=== PATIENT | male | born 1945 | race Caucasian/White ===

== ENCOUNTER 2022-01-12 08:43 | Outpatient (RCR) | payer MEDICARE, OTHER, SELFPAY ==
[2022-01-12 09:21] LABS: Basophils Absolute Auto 0.03 K/uL (0.00-0.30); Basophils Percent Auto 0.4 % (0.0-3.0); Eosinophils Absolute Auto 0.34 K/uL (0.00-0.50); Eosinophils Percent Auto 4.6 % (0.0-7.0); Hematocrit 45.6 % (37.0-53.0); Hemoglobin* 15.3 gm/dL (13.5-17.5); Immature Granulocytes Abs Auto 0.02 K/uL (0.00-0.30); Lymphocytes Absolute Auto 2.07 K/uL (0.90-2.90); Lymphocytes Percent Auto 27.9 % (20-44); Mean Corpuscular HGB Conc 34 gm/dL (32-36); Mean Corpuscular Hemoglobin 32 pg (26-34); Mean Corpuscular Volume 95 fL (80-100); Monocytes Percent Auto 11.4 % (0.0-11.0); Neutrophils Absolute Auto 4.12 K/uL (1.7-7.0); Neutrophils Percent Auto 55.4 % (42.0-72.0); Platelet Count* 170 K/uL (140-440); RDW Coefficient of Variation % 12.6 % (11.5-15.5); Red Blood Count 4.78 m/uL (4.30-5.90); White Blood Count* 7.43 K/uL (4.50-11.00)
[2022-01-12 09:24] LABS: Slide Review Reflex No
[2022-01-12 09:39] LABS: Albumin* 4.3 g/dL (3.3-5.0); Chloride* 104 mmol/L (96-114); Sodium* 139 mmol/L (135-149)
[2022-01-12 09:40] LABS: Potassium* 3.7 mmol/L (3.6-5.1)
[2022-01-12 09:42] LABS: Alanine Aminotransferase* 24 U/L (4-50); Alkaline Phosphatase* 94 U/L (40-150); Aspartate Amino Transferase* 30 U/L (12-35); Bilirubin Total* 0.6 mg/dL (0.1-1.5); Blood Urea Nitrogen* 18 mg/dL (7-30); Carbon Dioxide* 27 mmol/L (20-32); Estimated Glomerular Filt Rate 77 ml/min; Glucose* 125 mg/dL (60-115); Lactate Dehydrogenase* 426 U/L (313-618); Total Protein* 7.2 g/dL (6.0-8.3)
== END 2022-07-11 23:59 | disposition home or self-care (01) ==
LOC: CCIC 08:43
PROVIDERS: PCP Family Medicine; Visit Provider Internal Medicine Hematology & Oncology
DX: C85.90 Non-Hodgkin lymphoma, unspecified, unspecified site (principal)
CPT/HCPCS: 36415; 80053; 83615; 85025; 99212; 99213; 99214

== ENCOUNTER 2023-02-01 11:30 | Outpatient (RCR) | payer MEDICARE, SELFPAY ==
--- NOTE | 2023-01-04 09:22 | PT.OPEX ---
PT [place] [facility] PT [facility] Eval Start: 01/04/23 07:40 Freq: Status: Active Protocol: Document 01/04/23 07:41 [email or web address] (Rec: 01/04/23 09:22 [id number]) E-signed By Jyothi Thompson, PT Physical Therapy Outpatient Evaluation Insurance Information Recert Due Date 03/31/23 Insurance Name Medicare B,Other; See Comments Insurance Information/Comments [employer] Medical Diagnosis Bursitis of both hips Treating Diagnosis Left hip pain, right hip pain, hip abductor weakness, antalgic gait Referring MD Meléndez Subjective Subjective Roblero reports to PT with primary complaint of B lateral hip pain with initial gradual and insidious onset about 1 month ago. He has a history of B DONOVAN 2003 and 2005 done at [place]. Worse with walking and sleeping on his side. More pain left hip than right. Denies radicular symptoms or changes in bowel/bladder. Has tried ice with about 10 min pain relief. At baseline has balance deficits which affects his gait pattern (very wide CHELSIE). He has been told he has vestibular issues but has not been diagnosed with any particular disease. Does not use AD. Goals are to reduce B hip pain in order to continue walking and playing golf without flare up of pain. 12/28/22 x-ray: These show his ingrowth total hip arthroplasty implants remain well placed and well-fixed. PMH: follicular lymphoma, B DONOVAN Pain Comments 08/31 L 1-06/03 R Date of Last Physician Visit 12/28/22 Current Work Status Retired Objective Other/Pertinent Objective Hip ROM WNL B, no pain with PROM testing LE Strength (R/L): -Hip Abd: R: 4/5, L: 3+/5 -Hip Add: R: 4+/5, L: 4+/5 -Hip Ext: R: 4/5, L: 4/5 -Hip Flx: R: 5/5, L: 5/5 Gait: wide CHELSIE with L hip circumducted, reverse trendelenburg L>R, mid foot strike L SL balance: unable to perform d/t vestibular issues TTP L>R distal glut med insertion Functional Test Performed & Score LEFS: 46/80 Assessment Assessment/Impression Patient is a 77 year old male presenting to physical therapy for evaluation and treatment of B hip pain. Patient presents with L>R hip abductor weakness and antalgic gait. These impairments are limiting the patients ability to continue walking program and golfing without pain. Patient appears motivated to participate in PT and presents with good prognosis to improve mobility, strength, proprioception and return to functional activities with skilled physical therapy intervention. Primary Functional Limitations continue walking program and golfing without pain Plan of Care Rehabilitation Potential Good Physical Therapy Goals In 4 weeks (02/01/23) Pt will be able to walk >1/2 mile with <2/10 hip pain in order to perform community ambulation Pt will be able to stand >30 min with <2/10 hip pain in order to perform ADLs In 8 weeks (03/01/23) Pt will exhibit 9 pt improvement in LEFS Outcome measure to demonstrate functional improvement and progress towards goals. Pt will be able to walk >1 mile with <2/10 hip pain in order to play golf Pt will demonstrate at least 4 +/5 strength MMT in glut max & glut med to improve dynamic control with SLS activities and gait. Treatment Plan/Direct Interventions Gait Training,Ice/Cold/ Vasopneumatic,Joint Mobilization,Manual Therapy, Neuromuscular Re-ed,Self-Care/ Home Management,Therapeutic Activities,Therapeutic Exercises Frequency/Duration 1x/wk for 4 weeks with additional 4 sessions prn based on progress Patient Will Be Discharged From Therapy Completion of LTG(s), Independent w/HEP, Independently Progressing Evaluation Billing Untimed Code Treatment Minutes 20 Complexity Low Certification Information Initial Certification Date 01/04/23 Ending Certification Date 03/31/23 Provider Signature Shows Agreement With POC & Medical Necessity Physician Signature & Date Requested Please Sign/Date Here Physician Comment/Change : Physician NPI Number #
== END 2023-04-05 14:11 | disposition home or self-care (01) ==
LOC: CCIC 11:30
PROVIDERS: PCP Family Medicine; Referring Provider Internal Medicine Hematology & Oncology; Visit Provider Orthopaedic Surgery
DX: C82.90 Follicular lymphoma, unspecified, unspecified site (principal); M70.71 Other bursitis of hip, right hip; M70.72 Other bursitis of hip, left hip
CPT/HCPCS: 97110; 97140; 97161; 99212; 99213; 99214

== ENCOUNTER 2023-12-21 11:17 | Emergency (ER) | payer MEDICARE, SELFPAY ==
[2023-12-21 11:38] VITALS: BP 115/76; PULSE 62; RESP 16; TEMP 36.5; O2SAT 96; BMI 26.4
--- NOTE | 2023-12-21 13:23 | ED.GENADULT ---
HPI - General Adult General Date Seen: 12/21/23 Chief complaint: Cough Stated complaint: Cough, heavy chest, shortness of breath, Time Seen by Provider: 12/21/23 11:20 Source: patient Mode of arrival: ambulatory Limitations: no limitations History of Present Illness HPI narrative: Patient is a 78 year old male presenting to emergency department for chest discomfort and respiratory symptoms. He is into for the past 2 and half weeks he has been having a dry cough, rhinorrhea. . States he has been having intermittent chest discomfort for the past 2 and half weeks that seems to be random in nature with no obvious preceding events. States cough seems to be worse at night. He thinks is because he is having more postnasal drip. Denies fever, nausea, vomiting, chest congestion, shortness of breath, weakness, numbness, lightheadedness. Does have dizziness but this is a chronic issue for him he has not noticed any difference. Had a COVID test done yesterday that was negative. Was told to come in for evaluation by is clinic due to his chest discomfort. States he is currently asymptomatic. Denies any history of heart or lung disease. Quit smoking over 30 years ago. Related Data Home Medications ?Medication ?Instructions ?Recorded ?Confirmed alprazolam 0.25 mg tablet 0.25 mg PO DAILY PRN anxiety 11/30/21 02/01/23 cholecalciferol (vitamin D3) 125 125 mcg PO QDAY 01/12/22 02/01/23 mcg (5,000 unit) capsule tadalafil 10 mg tablet 10 mg PO PRN 01/12/22 02/01/23 zinc gluconate 50 mg tablet 25 mg PO QDAY 01/12/22 02/01/23 Allergies Allergy/AdvReac Type Severity Reaction Status Date / Time No Known Drug Allergies Allergy Verified 12/21/23 11:38 Review of Systems Status of ROS: Reports: 10 or more systems reviewed and unremarkable except as noted in History and below [facility] Medical History (Updated 12/21/23 @ 16:23 by Laurent Canseco DO) Greater trochanteric bursitis of both hips ?M70.61 - Trochanteric bursitis, right hip (ICD-10) ?M70.62 - Trochanteric bursitis, left hip (ICD-10) Transaminitis ?R74.01 - Elevation of levels of liver transaminase levels (ICD-10) Follicular lymphoma (~2010) ?C82.90 - Follicular lymphoma, unspecified, unspecified site (ICD-10) Surgical History (Updated 12/28/22 @ 13:45 by Elsa Diaz ~ [facility]) H/O hernia repair (~2014) ?Z98.890 - Other specified postprocedural states (ICD-10) ?Z87.19 - Personal history of other diseases of the digestive system (ICD-10) Status post total replacement of left hip (~2003) ?Z96.642 - Presence of left artificial hip joint (ICD-10) Status post total replacement of right hip (~2005) ?Z96.641 - Presence of right artificial hip joint (ICD-10) Social History (Updated 12/28/22 @ 13:45 by Elsa Diaz ~ [facility], [facility]) Narrative: former smoker-quit 1991 Smoking Status: Former smoker What tobacco products do you use: cigarettes Smoking quit date/years: >15 years ago Do you use any of these nicotine containing products: None Second hand tobacco smoke exposure: No Exam Narrative: Exam Narrative: Const: Well-nourished, Well-developed, in no distress Eyes: PERRL, no conjunctival injection, and symmetrical lids HENT: Atraumatic external nose and ears. Moist mucous membranes. Neck: Symmetric, trachea midline, No thyromegaly. CVS: RRR, No murmurs or gallops. Peripheral pulses 2+ and equal in all extremities RESP: Unlabored respiratory effort. Clear to auscultation bilaterally. GI: Nontender/Nondistended, No rebound or guarding. MSK:Extremities w/o deformity, Normal Active ROM Skin: Warm, Dry. No rashes or lesions. Neuro: Normal Muscle tone, No focal neurological deficits. Psych: Awake, Alert, & Oriented x3. Appropriate mood and affect. Const: Vital Signs, click to edit/add: Vital Signs - 24 hr 12/21/23 11:38 Temperature 97.7 F Pulse Rate [Pulse Oximeter] 62 Respiratory Rate 16 Blood Pressure [Ri ght Upper Arm] 115/76 Pulse Oximetry 96 Oxygen Delivery Me thod Room Air Course Vital Signs Vital signs: Initial Vital Signs Temperature 97.7 F 12/21/23 11:38 Temperature Source Temporal Artery Scan 12/21/23 11:38 Pulse Rate 62 12/21/23 11:38 Respiratory Rate 16 12/21/23 11:38 Blood Pressure 115/76 12/21/23 11:38 Blood Pressure Mean 89 12/21/23 11:38 Blood Pressure Position Sitting 12/21/23 11:38 Pulse Oximetry 96 12/21/23 11:38 Oxygen Delivery Method Room Air 12/21/23 11:38 Vital Signs Temperature 97.7 F 12/21/23 11:38 Pulse Rate 62 12/21/23 11:38 Respiratory Rate 16 12/21/23 11:38 Blood Pressure 115/76 12/21/23 11:38 Pulse Oximetry 96 12/21/23 11:38 Oxygen Delivery Method Room Air 12/21/23 11:38 Temperature 97.7 F 12/21/23 11:38 Pulse Rate 62 12/21/23 11:38 Respiratory Rate 16 12/21/23 11:38 Blood Pressure 115/76 12/21/23 11:38 Pulse Oximetry 96 12/21/23 11:38 Oxygen Delivery Method Room Air 12/21/23 11:38 Medical Decision Making [facility] Narrative Medical decision making narrative: Patient is 78-year-old male presenting to the emergency department floor to her respiratory symptoms and chest pain. The differential diagnosis of chest pain is broad and includes common etiologies such as musculoskeletal strain, GERD, pneumonia, etc. More serious etiologies considered include PE, coronary artery disease, pneumothorax, aortic dissection, aortic aneurysm. The this time symptoms seem more likely related to your eye but I will order a D-dimer to look for signs of PE. BMP, troponin, urinalysis, EKG all ordered. CBC, CMP shows no concerning abnormalities. Troponin shows no concerning abnormalities. COVID/flu were negative. EKG shows no concerning finding. ACS seems unlikely at this time. Did a repeat troponin does also within normal limits. Since his D-dimer was elevated at 3.3 a will order CTA of the chest. This returned showing no evidence for acute abnormalities. There were some incidental findings but nothing of suspicion. He is doing well this time and vital signs continues to stay stable. Symptoms are most likely related to a viral syndrome. He will be discharged at this time he is agreeable to this plan. Lab Data Labs: Lab Results 12/21/23 12/21/23 12/21/23 Range/Units 13:12 13:21 13:45 WBC (4.50-11.00) K/uL RBC (4.30-5.90) m/uL Hgb (13.5-17.5) gm/dL Hct (37.0-53.0) % MCV (80-100) fL MCH (26-34) pg MCHC (32-36) gm/dL RDW Coeff of Dylan (11.5-15.5) % Plt Count (140-440) K/uL Neut % (Auto) (42.0-72.0) % Lymph % (Auto) (20-44) % Isabela % (Auto) (0.0-11.0) % Eos % (Auto) (0.0-7.0) % Baso % (Auto) (0.0-3.0) % Neut # (Auto) (1.7-7.0) K/uL Lymph # (Auto) (0.90-2.90) K/uL Isabela # (Auto) (0.00-0.90) K/UL Eos # (Auto) (0.00-0.50) K/uL Baso # (Auto) (0.00-0.30) K/uL Abs Immat Gran (auto) (0.00-0.30) K/uL Imm/Tot Granulo (auto) % D-Dimer Quant (PE/DVT) 3.30 H (0.00-0.50) ug/ml Sodium 138 (135-149) mmol/L Potassium 4.6 (3.6-5.1) mmol/L Chloride 105 (96-114) mmol/L Carbon Dioxide 23 (20-32) mmol/L Anion Gap 10 (7-15) mEq/L BUN 12 (7-30) mg/dL Creatinine 1.0 (0.5-1.5) mg/dL Estimated Creat Clear 64.67 Estimated GFR 76 ml/min Glucose 103 (60-115) mg/dL Calcium 9.2 (8.4-10.6) mg/dL Troponin I < 0.01 L (0.01-0.04) ng/mL Urine Color Yellow (Yellow) Urine Appearance Clear (Clear) Urine pH 5.5 (5.0-8.5) Ur Specific Chandler 1.020 (1.000-1.030) Urine Protein Negative (Negative) Urine Glucose (UA) Negative (Negative) Urine Ketones Negative (Negative) Urine Blood Negative (Negative) Urine Nitrite Negative (Negative) Urine Bilirubin Negative (Negative) Urine Urobilinogen 0.2 (0.2-1.0) Ur Leukocyte Esterase Negative (Negative) Urine RBC 0-2 (0-2) Urine WBC 0-2 (0-5) Ur Squamous Epith Cells None (None-Few) Urine Bacteria None (None) SARS-CoV-2 (PCR) (Negative) Influenza Type A (PCR) (Negative) Influenza Type B (PCR) (Negative) Lab Acknowledgement POC Troponin I 0.00 L (0.01-0.04) ng/ml 12/21/23 12/21/23 12/21/23 Range/Units 14:17 14:45 14:48 WBC 8.00 (4.50-11.00) K/uL RBC 4.85 (4.30-5.90) m/uL Hgb 15.3 (13.5-17.5) gm/dL Hct 46.5 (37.0-53.0) % MCV 96 (80-100) fL MCH 32 (26-34) pg MCHC 33 (32-36) gm/dL RDW Coeff of Dylan 13.1 (11.5-15.5) % Plt Count 164 (140-440) K/uL Neut % (Auto) 59.1 (42.0-72.0) % Lymph % (Auto) 25.3 (20-44) % Isabela % (Auto) 10.5 (0.0-11.0) % Eos % (Auto) 4.5 (0.0-7.0) % Baso % (Auto) 0.5 (0.0-3.0) % Neut # (Auto) 4.73 (1.7-7.0) K/uL Lymph # (Auto) 2.02 (0.90-2.90) K/uL Isabela # (Auto) 0.80 (0.00-0.90) K/UL Eos # (Auto) 0.36 (0.00-0.50) K/uL Baso # (Auto) 0.04 (0.00-0.30) K/uL Abs Immat Gran (auto) 0.01 (0.00-0.30) K/uL Imm/Tot Granulo (auto) 0.1 % D-Dimer Quant (PE/DVT) (0.00-0.50) ug/ml Sodium (135-149) mmol/L Potassium (3.6-5.1) mmol/L Chloride (96-114) mmol/L Carbon Dioxide (20-32) mmol/L Anion Gap (7-15) mEq/L BUN (7-30) mg/dL Creatinine (0.5-1.5) mg/dL Estimated Creat Clear Estimated GFR ml/min Glucose (60-115) mg/dL Calcium (8.4-10.6) mg/dL Troponin I (0.01-0.04) ng/mL Urine Color (Yellow) Urine Appearance (Clear) Urine pH (5.0-8.5) Ur Specific Chandler (1.000-1.030) Urine Protein (Negative) Urine Glucose (UA) (Negative) Urine Ketones (Negative) Urine Blood (Negative) Urine Nitrite (Negative) Urine Bilirubin (Negative) Urine Urobilinogen (0.2-1.0) Ur Leukocyte Esterase (Negative) Urine RBC (0-2) Urine WBC (0-5) Ur Squamous Epith Cells (None-Few) Urine Bacteria (None) SARS-CoV-2 (PCR) Negative SARS-CoV-2 (Negative) Influenza Type A (PCR) Negative PCR FLU A (Negative) Influenza Type B (PCR) Negative PCR FLU B (Negative) Lab Acknowledgement Test Added POC Troponin I (0.01-0.04) ng/ml 12/21/23 Range/Units 15:43 WBC (4.50-11.00) K/uL RBC (4.30-5.90) m/uL Hgb (13.5-17.5) gm/dL Hct (37.0-53.0) % MCV (80-100) fL MCH (26-34) pg MCHC (32-36) gm/dL RDW Coeff of Dylan (11.5-15.5) % Plt Count (140-440) K/uL Neut % (Auto) (42.0-72.0) % Lymph % (Auto) (20-44) % Isabela % (Auto) (0.0-11.0) % Eos % (Auto) (0.0-7.0) % Baso % (Auto) (0.0-3.0) % Neut # (Auto) (1.7-7.0) K/uL Lymph # (Auto) (0.90-2.90) K/uL Isabela # (Auto) (0.00-0.90) K/UL Eos # (Auto) (0.00-0.50) K/uL Baso # (Auto) (0.00-0.30) K/uL Abs Immat Gran (auto) (0.00-0.30) K/uL Imm/Tot Granulo (auto) % D-Dimer Quant (PE/DVT) (0.00-0.50) ug/ml Sodium (135-149) mmol/L Potassium (3.6-5.1) mmol/L Chloride (96-114) mmol/L Carbon Dioxide (20-32) mmol/L Anion Gap (7-15) mEq/L BUN (7-30) mg/dL Creatinine (0.5-1.5) mg/dL Estimated Creat Clear Estimated GFR ml/min Glucose (60-115) mg/dL Calcium (8.4-10.6) mg/dL Troponin I (0.01-0.04) ng/mL Urine Color (Yellow) Urine Appearance (Clear) Urine pH (5.0-8.5) Ur Specific Chandler (1.000-1.030) Urine Protein (Negative) Urine Glucose (UA) (Negative) Urine Ketones (Negative) Urine Blood (Negative) Urine Nitrite (Negative) Urine Bilirubin (Negative) Urine Urobilinogen (0.2-1.0) Ur Leukocyte Esterase (Negative) Urine RBC (0-2) Urine WBC (0-5) Ur Squamous Epith Cells (None-Few) Urine Bacteria (None) SARS-CoV-2 (PCR) (Negative) Influenza Type A (PCR) (Negative) Influenza Type B (PCR) (Negative) Lab Acknowledgement POC Troponin I 0.00 L (0.01-0.04) ng/ml Imaging Data CTA chest: Attestation: I have reviewed the pertinent imaging results. Radiologist's impression: 1. No CT evidence of an acute process involving the thorax; specifically, no pulmonary embolism. 2. Additional incidental findings as detailed above. Please note that all CT scans at this facility use dose modulation, iterative reconstruction, and/or weight-based dosing when appropriate to reduce radiation dose to as low as reasonably achievable. Dictated by Tano Dubose MD @ 12/21/2023 3:31:46 PM ECG Data Attestation: I personally reviewed and interpreted this ECG as follows: Prior ECG tracings: not available for review Interpretation: Sinus bradycardia rate 56 beats per minute, no intervals, normal axis, no ST T-wave abnormality Discharge Plan Discharge Clinical Impression: Acute viral syndrome Patient Disposition: Home, Self-Care Condition: Stable Instructions: Viral Syndrome (ED) Additional Instructions: Follow-up the primary care provider symptoms continue to persist. Return to emergency department for new or worsening symptoms. Prescriptions: No Action tadalafil 10 mg tablet 10 mg PO PRN zinc gluconate 50 mg tablet 25 mg PO QDAY cholecalciferol (vitamin D3) 125 mcg (5,000 unit) capsule 125 mcg PO QDAY alprazolam 0.25 mg tablet 0.25 mg PO DAILY PRN (Reason: anxiety) Patient Comments: TAKE 1/2 - 1 TABLET BY MOUTH ONCE DAILY NEEDED. Follow Up/Referrals: Julian Chris MD [Primary Care Provider] - Stand Alone Forms: daysoft Info Instructions
[2023-12-21 13:50] LABS: Appearance Urine Clear (Clear); Bilirubin Urine Negative (Negative); Blood Urine Negative (Negative); Color Urine Yellow (Yellow); Glucose Urine Negative (Negative); Ketones Urine Negative (Negative); Leukocyte Esterase Urine Negative (Negative); Nitrite Urine Negative (Negative); Protein Urine Negative (Negative); Urobilinogen Urine 0.2 (0.2-1.0); pH Urine 5.5 (5.0-8.5)
[2023-12-21 13:53] LABS: Chloride* 105 mmol/L (96-114); Potassium* 4.6 mmol/L (3.6-5.1); Sodium* 138 mmol/L (135-149)
[2023-12-21 13:55] LABS: Est. Creatinine Clearance* 64.67; Estimated Glomerular Filt Rate 76 ml/min
[2023-12-21 13:56] LABS: Anion Gap 10 mEq/L (7-15); Blood Urea Nitrogen* 12 mg/dL (7-30); Calcium* 9.2 mg/dL (8.4-10.6); Carbon Dioxide* 23 mmol/L (20-32); Glucose* 103 mg/dL (60-115)
[2023-12-21 14:07] LABS: RBC Urine 0-2 (0-2); WBC Urine 0-2 (0-5)
--- NOTE | 2023-12-21 14:07 | CRLHL7_ITS ---
For Patients: As a result of the Century Cures Act, medical imaging exams and procedure reports are released immediately into your electronic medical record. You may view this report before your referring provider. If you have questions, please contact your health care provider. Indication: Shortness of breath Technique: CTA chest, pulmonary embolism protocol, utilizing 95 mL Isovue 370 Comparison: CT chest/abdomen/pelvis on November 19, 2010 Findings: No thyroid nodules. No thoracic lymphadenopathy. Mild cardiomegaly. No CT evidence of right heart strain. No pericardial effusion. Minimal coronary artery calcifications. The thoracic aorta and pulmonary artery are within normal limits in caliber. Trace biapical pleural/parenchymal scarring and trace dependent and bibasilar atelectatic changes. No focal airspace consolidation, pleural effusion, or pneumothorax. Faint mosaic attenuation in the bilateral lung bases, likely secondary to air trapping. No suspicious pulmonary nodules or masses. Stable small focus scarring in the anterior aspect of the right middle lobe (series number 7, image 110). There are few calcified granulomas bilaterally. The visualized upper abdomen is without acute process. Tiny hiatal hernia. Small nonobstructing stones versus vascular calcifications in the bilateral kidneys. Similar-appearing asher mesentery. Soft tissues and osseous structures are unremarkable. Impression: 1. No CT evidence of an acute process involving the thorax; specifically, no pulmonary embolism. 2. Additional incidental findings as detailed above. Please note that all CT scans at this facility use dose modulation, iterative reconstruction, and/or weight-based dosing when appropriate to reduce radiation dose to as low as reasonably achievable. Dictated by Tano Dubose MD @ 12/21/2023 3:31:46 PM (Electronically Signed)
[2023-12-21 14:11] LABS: Troponin I* < 0.01 ng/mL (0.01-0.04)
[2023-12-21 14:59] LABS: PCR FLU A Negative PCR FLU A (Negative); PCR FLU B Negative PCR FLU B (Negative); SARS PCR* Negative SARS-CoV-2 (Negative)
[2023-12-21 15:02] LABS: Basophils Absolute Auto 0.04 K/uL (0.00-0.30); Basophils Percent Auto 0.5 % (0.0-3.0); Eosinophils Absolute Auto 0.36 K/uL (0.00-0.50); Eosinophils Percent Auto 4.5 % (0.0-7.0); Hematocrit 46.5 % (37.0-53.0); Hemoglobin* 15.3 gm/dL (13.5-17.5); Immature Granulocytes Abs Auto 0.01 K/uL (0.00-0.30); Immature Granulocytes Pct Auto 0.1 %; Lymphocytes Absolute Auto 2.02 K/uL (0.90-2.90); Lymphocytes Percent Auto 25.3 % (20-44); Mean Corpuscular HGB Conc 33 gm/dL (32-36); Mean Corpuscular Hemoglobin 32 pg (26-34); Mean Corpuscular Volume 96 fL (80-100); Monocytes Percent Auto 10.5 % (0.0-11.0); Neutrophils Absolute Auto 4.73 K/uL (1.7-7.0); Neutrophils Percent Auto 59.1 % (42.0-72.0); Platelet Count* 164 K/uL (140-440); RDW Coefficient of Variation % 13.1 % (11.5-15.5); Red Blood Count 4.85 m/uL (4.30-5.90)
[2023-12-21 15:07] LABS: Slide Review Reflex No
== END 2023-12-21 16:34 | disposition home or self-care (01) ==
PROVIDERS: Internal Medicine Hematology & Oncology; Emergency Provider Student in an Organized Health Care Education/Training Program; PCP Family Medicine
DX: B34.9 Viral infection, unspecified (principal)
CPT/HCPCS: 36415; 71275; 80048; 81001; 84484; 85025; 85379; 87631; 93005; 99283; 99284; Q9967

== ENCOUNTER 2024-01-29 11:59 | Outpatient (RCR) | payer MEDICARE, SELFPAY ==
[2024-01-29 12:24] LABS: Basophils Absolute Auto 0.03 K/uL (0.00-0.30); Basophils Percent Auto 0.5 % (0.0-3.0); Eosinophils Absolute Auto 0.27 K/uL (0.00-0.50); Eosinophils Percent Auto 4.1 % (0.0-7.0); Hematocrit 47.2 % (37.0-53.0); Hemoglobin* 15.5 gm/dL (13.5-17.5); Immature Granulocytes Abs Auto 0.01 K/uL (0.00-0.30); Immature Granulocytes Pct Auto 0.2 %; Lymphocytes Absolute Auto 1.93 K/uL (0.90-2.90); Lymphocytes Percent Auto 29.4 % (20-44); Mean Corpuscular HGB Conc 33 gm/dL (32-36); Mean Corpuscular Hemoglobin 32 pg (26-34); Mean Corpuscular Volume 97 fL (80-100); Monocytes Percent Auto 10.8 % (0.0-11.0); Neutrophils Absolute Auto 3.61 K/uL (1.7-7.0); Platelet Count* 162 K/uL (140-440); RDW Coefficient of Variation % 13.1 % (11.5-15.5); Red Blood Count 4.87 m/uL (4.30-5.90); White Blood Count* 6.56 K/uL (4.50-11.00)
[2024-01-29 12:25] LABS: Slide Review Reflex No
[2024-01-29 12:38] LABS: Albumin* 4.2 g/dL (3.3-5.0); Chloride* 104 mmol/L (96-114)
[2024-01-29 12:39] LABS: Potassium* 4.2 mmol/L (3.6-5.1); Sodium* 137 mmol/L (135-149)
[2024-01-29 12:41] LABS: Alkaline Phosphatase* 88 U/L (40-150); Anion Gap 6 mEq/L (7-15); Aspartate Amino Transferase* 61 U/L (12-35); Bilirubin Total* 0.7 mg/dL (0.1-1.5); Blood Urea Nitrogen* 14 mg/dL (7-30); Carbon Dioxide* 27 mmol/L (20-32); Creatinine* 1.1 mg/dL (0.5-1.5); Estimated Glomerular Filt Rate 68 ml/min; Glucose* 117 mg/dL (60-115); Lactate Dehydrogenase* 220 U/L (120-246); Total Protein* 7.2 g/dL (6.0-8.3)
[2024-01-29 12:42] LABS: Alanine Aminotransferase* 54 U/L (4-50); Calcium* 9.4 mg/dL (8.4-10.6)
== END 2024-07-27 23:59 | disposition home or self-care (01) ==
LOC: CCIC 11:59
PROVIDERS: PCP Physician Assistant Medical; Visit Provider Internal Medicine Hematology & Oncology
DX: C82.90 Follicular lymphoma, unspecified, unspecified site (principal)
CPT/HCPCS: 36415; 80053; 83615; 85025; 99213; 99214; G0463